=== PATIENT | male | born 1935 | race Caucasian/White ===

== ENCOUNTER 2023-03-23 20:02 | Inpatient (IN) | payer MEDICARE, BC ==
[2023-03-23 20:56] LABS: BASOPHILS PERCENT AUTO 0.3 % (0.0-1.0); EOSINOPHILS PERCENT AUTO 1.1 % (1.0-3.0); HEMATOCRIT 32.7 % (40.0-54.0); LYMPHOCYTES PERCENT AUTO 50.5 % (20.5-50.1); MEAN CORPUSCULAR HEMOGLOBIN 30.8 pg (27.0-34.0); MEAN CORPUSCULAR HGB CONC 33.6 g/dL (33.0-35.0); MEAN CORPUSCULAR VOLUME 91.6 fL (80-100); MONOCYTES PERCENT AUTO 6.4 % (2-8); NEUTROPHILS PERCENT AUTO 41.7 % (42.2-75.2); PLATELET COUNT,PLT 222 10^3/uL (150-450); RED BLOOD CELL COUNT 3.57 10^6/uL (4.6-6.2); WHITE BLOOD CELL COUNT,WBC 20.2 10^3/uL (5.0-10.0)
[2023-03-23 21:10] LABS: APPEARANCE,URINE CLEAR (CLEAR); BILIRUBIN,URINE NEGATIVE (NEGATIVE); COLOR,URINE YELLOW (YELLOW); GLUCOSE,URINE 250 (NEGATIVE); KETONES,URINE NEGATIVE (NEGATIVE); LEUKOCYTE ESTERASE,URINE TRACE (NEGATIVE); NITRITE,URINE NEGATIVE (NEGATIVE); OCCULT BLOOD,URINE SMALL (NEGATIVE); PROTEIN,URINE 100 (NEGATIVE); UROBILINOGEN,URINE 0.2 mg/dL (0.2-1.0)
[2023-03-23 21:16] LABS: ALANINE AMINOTRANSFERASE,ALT 19 U/L (16-63); ALBUMIN 3.7 g/dL (3.4-5.0); ALKALINE PHOSPHATASE 88 U/L (46-116); ANION GAP 15.4 mEq/L (7-13); ASPARTATE AMNIOTRANSFERASE,AST 11 U/L (15-37); BILIRUBIN TOTAL 0.3 mg/dL (0.2-1.0); BLOOD UREA NITROGEN,BUN 48 mg/dL (7-18); BUN/CREATININE RATIO 19.9 (No establ ref range); C-REACTIVE PROTEIN 4.57 ng/dL (<=0.30); CALCIUM 9.2 mg/dL (8.5-10.1); CARBON DIOXIDE,CO2 26 mmol/L (21-32); CHLORIDE,CL 99 mmol/L (98-107); CREATININE 2.41 mg/dL (0.70-1.30); EST CRCL DRUG DOSING (CG) 19.43 mL/min; GLUCOSE RANDOM 222 mg/dL (70-99); LIPASE 63 U/L (16-77); MAGNESIUM 1.5 mg/dL (1.8-2.4); POTASSIUM,K 4.4 mmol/L (3.5-5.1); PROTEIN TOTAL,TP 7.3 g/dL (6.4-8.2); SODIUM,NA 136 mmol/L (136-145)
[2023-03-23 21:18] LABS: AMPHETAMINES,URINE NEGATIVE (NEGATIVE); BARBITURATES,URINE NEGATIVE (NEGATIVE); BENZODIAZEPINE,URINE NEGATIVE (NEGATIVE); MDMA (ECSTASY), URINE NEGATIVE (NEGATIVE); METHADONE,URINE NEGATIVE (NEGATIVE); METHAMPHETAMINES,URINE NEGATIVE (NEGATIVE); OPIATES,URINE NEGATIVE (NEGATIVE); OXYCODONE,URINE NEGATIVE (NEGATIVE); PHENCYCLIDINE,URINE NEGATIVE (NEGATIVE); TCA,URINE NEGATIVE (NEGATIVE)
[2023-03-23 21:19] LABS: ESTIMATED GFR 25 mL/min (>=60); ETHANOL BLOOD MEDICAL < 3 mg/dL (0); LACTIC ACID 1.3 mmol/L (0.4-2.0)
[2023-03-23 21:20] LABS: PROTHROMBIN TIME 10.3 SEC (9.0-12.0); PTT,PARTIAL THROMBOPLSTIN TIME 30.1 SEC (22.0-34.0)
[2023-03-23 21:28] LABS: B-TYPE NATRIURETIC PEPTIDE,BNP 154 pg/ml (0-100)
[2023-03-23 21:41] LABS: BACTERIA,URINE FEW /HPF (0-FEW/HPF); EPITHELIAL CELLS,URINE FEW /HPF (NOT SEEN); MUCUS,URINE RARE /LPF (NOT SEEN)
[2023-03-23] MEDS ORDERED: Sodium Chloride 0.9% 10 ML Syringe FLUSH PRN (23:14)
[2023-03-23] MEDS ORDERED: Ondansetron 4 MG/2 ML SDV IVPUSH PRN (23:14)
[2023-03-23] MEDS ORDERED: Atropine 1% Ophth Soln 5 ML Bottle SL PRN (23:15)
[2023-03-23] MEDS ORDERED: Morphine 2 MG/ML SYRINGE IVPUSH PRN (23:16)
[2023-03-23] MEDS ORDERED: LORazepam 2 MG/ML SDV IVPUSH PRN (23:17)
[2023-03-23] MEDS ORDERED: Scopolamine 1.5 MG Transdermal Patch TOP ONE (23:17)
[2023-03-24] MEDS: Sodium Chloride 0.9% 10 ML Syringe FLUSH SCH ×2 (10:41→20:30)
[2023-03-24] MEDS: CHECK SCOPOLAMINE PATCH DAILY SCH (10:41)
[2023-03-25] MEDS: Sodium Chloride 0.9% 10 ML Syringe FLUSH SCH (10:15)
[2023-03-25] MEDS: CHECK SCOPOLAMINE PATCH DAILY SCH (10:15)
== END 2023-03-25 09:34 | disposition hospice, home (50) | DRG 66 ==
LOC: DL.ED 20:02 → OBSVTOIN 22:20 → UNDOADMOB 22:20 → INTOOBSV 22:20 → DL.MS 22:20 → DL.ED 22:40
PROVIDERS: ADMIT Internal Medicine; ATTEND Internal Medicine
DX: Z51.5 Encounter for palliative care (principal); I60.9 Nontraumatic subarachnoid hemorrhage, unspecified; I61.5 Nontraumatic intracerebral hemorrhage, intraventricular; I10 Essential (primary) hypertension; E11.9 Type 2 diabetes mellitus without complications; E78.5 Hyperlipidemia, unspecified; I61.8 Other nontraumatic intracerebral hemorrhage; I12.9 Hypertensive chronic kidney disease with stage 1 through stage 4 chronic kidney disease, or unspecified chronic kidney disease; Z79.899 Other long term (current) drug therapy; E11.22 Type 2 diabetes mellitus with diabetic chronic kidney disease; E78.00 Pure hypercholesterolemia, unspecified; Z66 Do not resuscitate; Z20.822 Contact with and (suspected) exposure to COVID-19; R09.02 Hypoxemia; N18.30 Chronic kidney disease, stage 3 unspecified; D50.9 Iron deficiency anemia, unspecified; D63.1 Anemia in chronic kidney disease; E11.65 Type 2 diabetes mellitus with hyperglycemia; K21.9 Gastro-esophageal reflux disease without esophagitis; D72.829 Elevated white blood cell count, unspecified; E83.42 Hypomagnesemia; R79.82 Elevated C-reactive protein (CRP); Z79.01 Long term (current) use of anticoagulants; Z87.440 Personal history of urinary (tract) infections; Z85.6 Personal history of leukemia
CPT/HCPCS: 36415; 70450; 71045; 80053; 80305; 80307; 81001; 83605; 83690; 83735; 83880; 84145; 85025; 85610; 85730; 86140; 87040 ×2; 87804 ×2; 99285 ×2; U0002; 87086; 99223; 99233; 99238; A9270-GY; J2270; J3490